=== PATIENT | male | born 1965 | race Caucasian/White ===

== ENCOUNTER 2018-08-24 10:20 | Emergency (ER) | payer OTHER ==
[~2018-08-24] VITALS: Ht 165.1 cm; Wt 47.6 kg
[2018-08-24] MEDS ORDERED: NEURONTIN 300300 M1 PO (10:34)
[2018-08-24] MEDS ORDERED: LAMICTAL XR100 MG (10:34)
[2018-08-24] MEDS ORDERED: LISINOPRIL20 MG PO (10:34)
[2018-08-24] MEDS ORDERED: KEPPRA1000 MG PO (10:34)
[2018-08-24] MEDS ORDERED: [UNRECOGNIZED DRUG - OTHER] (10:35)
[2018-08-24] MEDS ORDERED: CELEXA20 MG PO (10:36)
[2018-08-24] MEDS ORDERED: PROAIR HFA8.5 GM (10:36)
[2018-08-24] MEDS ORDERED: CENTRUM SILVER1 EAC4 PO (10:36)
[2018-08-24] MEDS ORDERED: ASPIR 8181 MG PO (10:36)
[2018-08-24] MEDS ORDERED: PEPCID20 MG PO (10:36)
[2018-08-24] MEDS ORDERED: RISPERIDONE 00.25 M1 PO (10:37)
[2018-08-24 10:49] LABS: ABSOLUTE EOSINOPHILS 0.2 thou/uL (0.0-0.7); ABSOLUTE LYMPHOCYTES 2.1 thou/uL (0.8-5.3); ABSOLUTE MONOCYTES 0.4 thou/uL (0.0-1.2); ABSOLUTE NEUTROPHILS 7.6 thou/uL (1.6-8.1); BASOPHILS 0.5 %; EOSINOPHILS 1.6 %; HEMATOCRIT 44.9 % (42.0-52.0); HEMOGLOBIN 15.1 gm/dL (14.0-18.0); LYMPHOCYTES 20.5 %; MCH 32.7 pg (26.0-34.0); MCHC 33.5 g/dL (28.0-37.0); MCV 97.4 fL (80.0-100.0); MONOCYTES 4.1 %; MPV 7.8 fl. (7.2-11.1); NUCLEATED RBCS 0 /100WBC; PLATELET COUNT* 314 thou/uL (150-400); POLYS 73.3 %; RBC 4.61 mil/uL (4.50-6.00); RDW-CV 12.9 % (10.5-14.5); WBC 10.3 thou/uL (4.0-11.0)
[2018-08-24 10:53] LABS: ANION GAP 6 mmol/L (7-16); BUN 9 mg/dL (7-18); CALCIUM 8.8 mg/dL (8.5-10.1); CHLORIDE 95 mmol/L (98-107); CO2 33 mmol/L (21-32); GLUCOSE 115 mg/dL (70-99); POTASSIUM 3.9 mmol/L (3.5-5.1); SODIUM 134 mmol/L (136-145)
[2018-08-24 10:59] LABS: PROTIME 10.7 Seconds (9.20-11.50)
[2018-08-24 11:04] LABS: ALBUMIN 4.1 g/dL (3.4-5.0); ALKALINE PHOSPHATASE 122 U/L (46-116); LIPASE 67 U/L (73-393); NT-PRO BRAIN NAT PEPTIDE 31 pg/mL (<300); SGOT 22 U/L (15-37); SGPT 34 U/L (30-65); TOTAL BILIRUBIN 0.5 mg/dL (<0.1-1.0); TOTAL PROTEIN 7.6 g/dL (6.4-8.2); TROPONIN-I LEVEL <0.06 ng/mL (<0.06)
[2018-08-24 11:58] LABS: URINE BILIRUBIN NEGATIVE (Negative); URINE BLOOD NEGATIVE (Negative); URINE CLARITY CLEAR; URINE COLOR YELLOW; URINE GLUCOSE-RANDOM NEGATIVE (Negative); URINE KETONES TRACE (Negative); URINE LEUKOCYTES-REFLEX NEGATIVE (Negative); URINE NITRITE-REFLEX NEGATIVE (Negative); URINE PROTEIN NEGATIVE (Negative); URINE UROBILINOGEN 0.2 E.U./dl (0.2-1.0)
[2018-08-24] MEDS ORDERED: AZITHROMYCIN 2250 MG PO (12:00)
[2018-08-24 12:05] LABS: AMP/METHAMP Negative (Negative); BARBITURATES Negative (Negative); BENZODIAZEPINES Negative (Negative); COCAINE Negative (Negative); METHADONE Negative (Negative); OPIATES Negative (Negative); PCP Negative (Negative); THC POSITIVE (Negative)
[2018-08-24 12:11] VITALS: BP 126/86
[2018-08-24] MEDS ORDERED: VENTOLIN HFA 1818 GM INH (12:13)
--- NOTE | 2018-08-25 12:29 | EKG ---
[place] [address] ELECTROCARDIOGRAM REPORT Name: HANNAH ABRAHAM Room: [facility]#: [id number] Admission: 08/24/18 Attend Phys: Discharge: 08/24/18 Date of : 61 Report #: [id number] THIS REPORT FOR: //name// [facility] ED Test Date: 2018-08-24 Test Time: 10:32:49 Pat Name: HANNAH ABRAHAM Department: Room: Gender: M Chain Person: ELVI : 1965 Requested By: Freddy Newman Order Number: [id number] MD: Jefry Cornelius Measurements Intervals [place] Rate: 88 P: 81 RI: 162 QRS: 74 QRSD: 91 T: 70 QT: 363 QTc: 440 Interpretive Statements Sinus rhythm Right atrial enlargement Delayed R-wave progression Baseline wander in lead(s) V3 No previous ECG available for comparison Electronically Signed On 08-25-2018 12:29:35 HANDY MAN by Jefry Cornelius [email or web address] <ELECTRONICALLY SIGNED> By: Jefry Cornelius MD, [facility] 08/25/18 1229 D: 01/1031 31 Jefry Cornelius MD, FACC /EPI
== END 2018-08-24 12:15 | disposition home or self-care (01) ==
LOC: M.ERS 10:20
PROVIDERS: Emergency Medicine
DX: J18.9 Pneumonia, unspecified organism (principal); I10 Essential (primary) hypertension; F32.9 Major depressive disorder, single episode, unspecified; Z88.0 Allergy status to penicillin